=== PATIENT | male | born 1990 | race Caucasian/White ===

== ENCOUNTER 2023-04-01 08:10 | Emergency (ER) | payer OTHER ==
[2023-04-01 08:20] VITALS: BP 146/83; PULSE 76; RESP 18; TEMP 98; BMI 27.7
[2023-04-01] MEDS ORDERED: valACYclovir HCL 500 MG TABLET (FP) PO ONE (09:07)
[2023-04-01] MEDS ORDERED: valACYclovir HCL 500 MG TABLET (FP) ONE (09:09)
== END 2023-04-01 09:42 | disposition home or self-care (01) ==
LOC: JER 08:10
DX: R21 Rash and other nonspecific skin eruption (principal); R20.8 Other disturbances of skin sensation; R20.2 Paresthesia of skin; B02.9 Zoster without complications
CPT/HCPCS: 99283-25